=== PATIENT | male | born 1945 | race Caucasian/White ===

== ENCOUNTER 2021-08-24 21:15 | Emergency (ER) | payer BC ==
[2021-08-24 21:27] VITALS: PULSE 77; TEMP 98; BMI 34.0
[2021-08-24] MEDS ORDERED: BEBTELOVIMAB (EUA) 175 MG/2 ML VIAL IVPUSH ONE (21:28)
[2021-08-24 23:42] VITALS: BP 153/81
== END 2021-08-24 23:49 | disposition home or self-care (01) ==
LOC: JER 21:15
DX: U07.1 COVID-19 (principal)
CPT/HCPCS: 99284-25; Q0222